=== PATIENT | female | born 1980 | race African-American/Black ===

== ENCOUNTER → 2022-04-12 08:00 | Outpatient (CLI) | payer OTHER ==
[~2022-04-12] VITALS: Ht 160 cm; Wt 77.1 kg
== END | disposition home or self-care (01) ==
LOC: LAB 08:00 → EDSTATUS 04-14 08:45 → SURG 04-14 08:45
PROVIDERS: ATTEND Obstetrics & Gynecology
DX: D25.9 Leiomyoma of uterus, unspecified (principal)

== ENCOUNTER 2022-10-04 08:15 | Inpatient (IN) | payer OTHER ==
[~2022-10-04] VITALS: Ht 160 cm; Wt 77.1 kg
[2022-10-07] MEDS ORDERED: TRI-LO-SPRINTE1 EACH (10:27)
[2022-10-09] MEDS ORDERED: ACETAMINOPHEN-1 EAC2 PO (11:00)
[2022-10-09] MEDS ORDERED: KETO10TA2 PO (11:00)
== END 2022-10-09 19:17 | disposition home or self-care (01) | DRG 743 ==
LOC: O/R 10-06 07:42 → OB/GYN 10-06 07:42
PROVIDERS: ADMIT Obstetrics & Gynecology; ATTEND Obstetrics & Gynecology
PROC: 0UT70ZZ Resection of Bilateral Fallopian Tubes, Open Approach (ICD-10-PCS; 2022-10-06)
PROC: 0UT20ZZ Resection of Bilateral Ovaries, Open Approach (ICD-10-PCS; 2022-10-06)
PROC: 0DNW0ZZ Release Peritoneum, Open Approach (ICD-10-PCS; 2022-10-06)
PROC: 0UT90ZL Resection of Uterus, Supracervical, Open Approach (ICD-10-PCS; principal; 2022-10-06 08:30)
DX: D25.1 Intramural leiomyoma of uterus (principal); N83.01 Follicular cyst of right ovary; Z20.822 Contact with and (suspected) exposure to COVID-19